=== PATIENT | male | born 1955 | race Caucasian/White ===

== ENCOUNTER → 2016-12-23 | Outpatient (CLI) | payer BC ==
--- NOTE | 2016-12-23 12:52 | XR ---
EXAMINATION TYPE: XR chest 2V DATE OF EXAM: 12/23/2016 COMPARISON: January 08, 2016 HISTORY: Cough, back pain TECHNIQUE: Frontal and lateral views of the chest are obtained. FINDINGS: There is no focal air space opacity, pleural effusion, or pneumothorax seen. The cardiac silhouette size is within normal limits. The osseous structures are intact. IMPRESSION: No acute cardiopulmonary process.
== END | disposition home or self-care (01) ==
LOC: RADXRMAIN 12:08
PROVIDERS: ATTEND Physician Assistant Medical
DX: R05 Cough (principal); R06.02 Shortness of breath
CPT/HCPCS: 71020

== ENCOUNTER → 2017-08-31 | Outpatient (CLI) | payer BC ==
--- NOTE | 2017-08-31 16:10 | US ---
EXAMINATION TYPE: US kidneys/renal and bladder DATE OF EXAM: 08/31/2017 COMPARISON: CT abdomen and pelvis June 16, 2014 CLINICAL HISTORY: R35.0 Frequency Micturition. Microscopic hematuria, frequent urination, patient sta lila PSA level was normal , h/o renal stones 12 years ago EXAM MEASUREMENTS: Right Kidney: 10.8 x 5.9 x 5.8cm Left Kidney: 11.8 x 4.6 x 5.8 cm Right Kidney: No hydronephrosis or masses seen Left Kidney: No hydronephrosis or masses seen Bladder: wnl Bilateral Jets seen: Yes There is no evidence for hydronephrosis at this point in time. No nephrolithiasis is seen. No itzel s are identified. The urinary bladder is anechoic. Bilateral ureteral jets are seen. IMPRESSION: Unremarkable study.
== END | disposition home or self-care (01) ==
LOC: RADUSWWP 14:37
PROVIDERS: ATTEND Family Medicine
DX: R35.0 Frequency of micturition (principal); R31.29 Other microscopic hematuria
CPT/HCPCS: 76770

== ENCOUNTER → 2018-02-23 | Outpatient (CLI) | payer BC ==
--- NOTE | 2018-02-23 17:55 | XR ---
EXAMINATION TYPE: XR foot complete LT DATE OF EXAM: 02/23/2018 COMPARISON: NONE HISTORY: Metatarsal pain TECHNIQUE: 3 views FINDINGS: I see no fracture nor dislocation. Metatarsals are intact. There are no erosions. Joint spa maurilio are fairly normal. IMPRESSION: Negative left foot exam.
== END | disposition home or self-care (01) ==
LOC: RADXRYALE 16:46
PROVIDERS: ATTEND Family Medicine
DX: M79.672 Pain in left foot (principal)

== ENCOUNTER → 2018-04-30 | Outpatient (CLI) | payer BC ==
--- NOTE | 2018-04-30 15:41 | MR ---
EXAMINATION TYPE: MR shoulder RT wo con DATE OF EXAM: 04/30/2018 COMPARISON: Outside radiographs of the right shoulder dated 04/06/2018 HISTORY: Pain in right shoulder TECHNIQUE: Multiplanar, multisequence imaging of the right shoulder is performed without contrast. FINDINGS: Rotator Cuff: There is a 3 x 4 mm partial-thickness articular surface tear of the distal fibers of th e supraspinatus superimposed upon moderate tendinopathy with bursal surface fraying of the supraspina tus fibers. Additional 2 mm intrasubstance tear is seen of the distal insertional fibers. Bursal surface and articular surface fraying of the infraspinatus is seen with moderate grade tendino annie demonstrated as increased intrinsic signal of the myotendinous junction and distal fibers. The teres minor is unremarkable also volume and signal. Small amount of joint fluid is seen deep to the t eres minor. There is mild subscapularis tendinosis with increased distal fiber intrinsic signal. Acromioclavicular Joint: There is moderate acromioclavicular arthropathy with capsular hypertrophy, s ubchondral cystic change and small marginal osteophytes. Glenohumeral Joint: No significant joint space narrowing. Labrum: There is suspicion for a superior labral anterior posterior tear that is nondisplaced superim posed upon global labral degeneration. Biceps Tendon: The long head of biceps is in normal location within bicipital groove. There is attenu ation of the intra-articular portion of the biceps tendon compatible with biceps tendinosis appearing severe. Bone marrow signal: No focal abnormal marrow signal is appreciated. IMPRESSION: 1. Low-grade 3 x 4 mm partial-thickness articular surface tear of the distal fibers of the supraspina tus. 2. Moderate supraspinatus and infraspinatus tendinopathy with bursal surface fraying of the supraspin atus and bursal surface as well as articular surface fraying of the infraspinatus. 3. Suspicion for a superior labral anterior to posterior tear with global labral degeneration. MR art hrogram could be performed for increased specificity. 4. Severe intra-articular portion biceps tendinosis. 5. Moderate acromioclavicular arthropathy.
== END | disposition home or self-care (01) ==
LOC: RADMRIMAIN 12:54
PROVIDERS: ATTEND Orthopaedic Surgery
DX: M19.011 Primary osteoarthritis, right shoulder (principal); M75.111 Incomplete rotator cuff tear or rupture of right shoulder, not specified as traumatic; M75.81 Other shoulder lesions, right shoulder

== ENCOUNTER → 2018-05-07 | Outpatient (CLI) | payer BC ==
[2018-05-07 14:08] LABS: Basophils # (A) 0.1 k/uL (0-0.2); Basophils % (A) 1 %; Eosinophils # (A) 0.2 k/uL (0-0.7); Eosinophils % (A) 2 %; HCT 46.3 % (39.0-53.0); HGB 15.4 gm/dL (13.0-17.5); Lymphocytes # (A) 3.2 k/uL (1.0-4.8); Lymphocytes % (A) 32 %; MCH 30.6 pg (25.0-35.0); MCHC 33.3 g/dL (31.0-37.0); MCV 92.1 fL (80.0-100.0); Mean Platelet Volume 6.8; Monocytes # (A) 0.7 k/uL (0-1.0); Monocytes % (A) 7 %; Neutrophils # (A) 5.6 k/uL (1.3-7.7); Neutrophils % (A) 56 %; Platelet Count 301 k/uL (150-450); RBC 5.03 m/uL (4.30-5.90); RDW 12.7 % (11.5-15.5); WBC 10.1 k/uL (3.8-10.6)
[2018-05-07 14:22] LABS: Potassium 4.5 mmol/L (3.5-5.1)
== END ==
LOC: LABPAT 13:23
PROVIDERS: ATTEND Orthopaedic Surgery
DX: Z01.818 Encounter for other preprocedural examination (principal); Z01.812 Encounter for preprocedural laboratory examination; M75.41 Impingement syndrome of right shoulder
CPT/HCPCS: 36415; 80051; 85025; 93005

== ENCOUNTER 2018-05-27 07:23 | Day surgery (SDC) | payer BC ==
[2018-05-24 14:35] VITALS: BMI 30.8
--- NOTE | 2018-05-26 14:17 | HP ---
HISTORY AND PHYSICAL DATE OF SURGERY: 05/27/2018 Pio Brown is a 62-year-old patient seen with progressive right shoulder pain. Treatment options were discussed with him. He elected to proceed with arthroscopy. Consent was obtained. PAST MEDICAL HISTORY: Iav-nwmdltf-qafqwhtfh diabetes, gastroesophageal reflux disease. PAST SURGICAL HISTORY: Cervical spinal surgery. DAILY MEDICATIONS: 1. Aspirin. 2. Prilosec. ALLERGIES: KEFLEX, TETRACYCLINE. SOCIAL HISTORY: Patient denies current tobacco use. PHYSICAL EVALUATION OF THE RIGHT SHOULDER: Flexion is 160 degrees, abduction 140 degrees, external rotation is 25 degrees with pain and weakness. There is tenderness along the anterolateral acromion rotator cuff insertion site. Impingement sign is positive at 90 degrees. Distal neurovascular exam is intact. RADIOGRAPHS OF RIGHT SHOULDER: Revealed a type 2 anterior acromion, evidence for acromioclavicular joint osteoarthritis and cystic changes of the tuberosity. A right shoulder MRI revealed rotator cuff tear, labral tear. Biceps tendinosis and acromioclavicular joint osteoarthritis. IMPRESSION: 1. Right shoulder impingement with rotator cuff tear. 2. Cel-clhfogk-pqrefctcg diabetes. 3. Gastroesophageal reflux disease. PLAN: Right shoulder arthroscopy with subacromial decompression, possible arthroscopic rotator cuff repair, possible biceps tenotomy, probable Libertad procedure and debridement. MMODL / IJN: [id number] /
[~2018-05-27 07:23] MED LIST: CLINDAMYCIN 900 MG in DEXTROSE 5% IN WATER 50 ML IVPB ONE; DEXAMETHASONE SOD PHOSPHATE 10 MG/ML 1 ML VIAL IV ONE; LACTATED RINGERS 1,000 ML IV SCH; LIDOCAINE 1% 20 ML VIAL (10MG/ML) FOR IV START INTRADERMA PRN; MIDAZOLAM 2 MG/2 ML VIAL IV PRN; ONDANSETRON 4 MG/2 ML VIAL IVP ONE
[2018-05-27 07:53] VITALS: TEMP 97.7
[2018-05-27 07:55] LABS: Glucose,Whole Blood 147 mg/dL (75-99)
[2018-05-27] MEDS ORDERED: fentaNYL (PF) 50 MCG/ML 2 ML AMP IVP ONE (08:08)
[2018-05-27] MEDS ORDERED: MIDAZOLAM 2 MG/2 ML VIAL IVP ONE (08:08)
--- NOTE | 2018-05-27 08:27 | P.ONQ ---
Anesthesiology Proc Note - PNB - Peripheral Nerve Block Performed Right Interscalene Single Time Out Performed: Yes Procedure Start Time: :07 Procedure Stop Time: :16 Indication: Requested by physician Specifically requested for management of pain by : Levon Whitehead Sedation Type: Sedate with meaningful contact maintained Preparation: Sterile Prep Position: Supine Needle Types: Other (see comment) (Pujunk) Needle Size: 50mm (2") Needle Gauge: 21 Technique: Ultrasound Injectate: 0.5% Ropivacaine (see comment for volume) (25 ml) Blood Aspirated: No Pain Paresthesia on Injection Noted: No Resistance on Injection: Normal Events: Uneventful and Well Tolerated
[2018-05-27] MEDS ORDERED: ROPIVACAINE 5 MG/ML 30 ML VIAL ONE (09:58)
[2018-05-27] MEDS ORDERED: SUCCINYLCHOLINE CHLORIDE 100 MG/5 ML SYR IV ONE (09:58)
[2018-05-27] MEDS ORDERED: MIDAZOLAM 2 MG/2 ML VIAL ONE (09:58)
[2018-05-27] MEDS ORDERED: fentaNYL (PF) 50 MCG/ML 2 ML AMP ONE (09:58)
[2018-05-27] MEDS ORDERED: PROPOFOL 10 MG/ML 20 ML VIAL IV ONE (09:58)
[2018-05-27] MEDS ORDERED: LACTATED RINGERS 1,000 ML IV ONE (11:32)
[2018-05-27] MEDS: fentaNYL (PF) 50 MCG/ML 2 ML AMP IV PRN ×2 (11:55→12:15)
--- NOTE | 2018-05-27 11:55 | P.OP ---
Date of Procedure: 05/27/18 Preoperative Diagnosis: Right shoulder impingement Postoperative Diagnosis: 1. Right shoulder rotator cuff tear 2. Right shoulder impingement 3. Right shoulder acromioclavicular joint osteoarthritis 4. Right shoulder partial long head biceps tendon tear 5. Right shoulder labral tear Procedure(s) Performed: 1. Right shoulder arthroscopic rotator cuff repair 2. Right shoulder arthroscopic subacromial decompression 3. Right shoulder arthroscopic Libertad procedure 4. Right shoulder arthroscopic biceps tenotomy 5. Right shoulder arthroscopic debridement labral tear Implants: 14.75 Arthrex swivel lock anchor Anesthesia: GETA, regional (Interscalene block) Surgeon: Levon Whitehead Ballistics Teacher #1: Micheal Rivers Estimated Blood Loss (ml): 10 Pathology: none sent Condition: stable Disposition: PACU Indications for Procedure: 62-year-old patient seen with progressive right shoulder pain. After treatment options were discussed, he elected to proceed with arthroscopy Operative Findings: see description of procedure Description of Procedure: Patient underwent an interscalene block by department of anesthesia for postoperative pain management. The patient was then taken to the operative suite. The patient underwent a general anesthetic by the department of anesthesia. The patient was placed into a lateral position and secured. There was appropriate padding of the bony prominence. Right shoulder was then prepped and draped in normal sterile orthopedic fashion. We placed the extremity in 10 pounds of longitudinal traction. A posterior incision was now made for a posterior working portal site. The trocar and cannula were inserted into the glenohumeral joint. Arthroscopy was initiated. Spinal needle was now inserted anteriorly, to ascertain the anterior working portal site. An incision was now made in that area, a trocar was inserted followed by a probe. There was superficial tearing of the superior and anterior labrum present. Partial tearing of the long head biceps tendon. I could see a full-thickness rotator cuff tear from the glenohumeral side. There was mild grade 1 chondromalacia of the glenohumeral joint. I debrided the labral tear down to stable tissue. I performed an arthroscopic biceps tenotomy area the residual labrum was stable. Utilizing the posterior working portal site, the trocar and cannula were inserted into the subacromial space. Arthroscopy initiated. I made an incision 2 fingerbreadths lateral to the acromion. I introduced my trocar followed by my ArthroCare ablator. I now began ablating thick subacromial bursal tissue, which exposed the undersurface of the anterior acromion. There was diminished subacromial space. There was a very prominent anterior acromion. A motorized bur was introduced and a subacromial decompression was performed. I also excised some osteophytes off the inferior aspect of the distal clavicle. The AC joint was visualized and noted to be fairly arthritic. The motorized bur was introduced in the anterior portal site and a Libertad procedure was performed without difficulty, decompressing the AC joint nicely. I turned my attention to the rotator cuff. There was a 1 cm rotator cuff tear. I debrided the margins getting down to stable tendon tissue. The defect now measured 1.5 cm. I introduced my motorized bur and abraded the footprint area, getting some petechial bleeding. I passed 2 everted mattress sutures through good bites of rotator cuff tendon. I punched a hole in the footprint with the assistance of Elia LAGUNAS. The suture limbs were passed through a 4.75 Arthrex anchor. The anchor now was introduced our pre-punch hole. I held the anchor guide in position with one hand holding the camera with the other hand while Elia LAGUNAS tensioned the suture and screwed in the anchor. All residual suture limbs were now clipped. We had good compression of the tendon along the entire footprint. I injected 1 mL Renue intra-articular. Instruments now removed from the portal sites. All portal sites were approximated with nylon suture. Sterile dressings were applied followed by a shoulder immobilizer. Micheal LAGUNAS assisted in this complex case. The patient was awakened, transferred to a bed, and taken to recovery in stable condition.
[2018-05-27 12:05] VITALS: RESP 16
[2018-05-27 12:10] LABS: Glucose,Whole Blood 158 mg/dL (75-99)
[2018-05-27] MEDS ORDERED: HYDROcodone/APAP 7.5-325MG 1 EACH TAB PO ONE (12:57)
[2018-05-27 13:00] VITALS: BP 134/84; PULSE 63
== END 2018-05-27 13:47 | disposition home or self-care (01) ==
LOC: OR 07:23
PROVIDERS: ATTEND Orthopaedic Surgery
DX: M75.101 Unspecified rotator cuff tear or rupture of right shoulder, not specified as traumatic (principal); M75.41 Impingement syndrome of right shoulder; M19.011 Primary osteoarthritis, right shoulder; S46.111A Strain of muscle, fascia and tendon of long head of biceps, right arm, initial encounter; S43.431A Superior glenoid labrum lesion of right shoulder, initial encounter; X58.XXXA Exposure to other specified factors, initial encounter; K21.9 Gastro-esophageal reflux disease without esophagitis; E11.9 Type 2 diabetes mellitus without complications; Z79.82 Long term (current) use of aspirin; Z79.899 Other long term (current) drug therapy; Z88.1 Allergy status to other antibiotic agents; E78.5 Hyperlipidemia, unspecified; G47.33 Obstructive sleep apnea (adult) (pediatric); J45.909 Unspecified asthma, uncomplicated; Z91.010 Allergy to peanuts; Z91.018 Allergy to other foods
CPT/HCPCS: 64415; 29826; 29827; 29824; C1713 ×2; C1765; J2250; J1100; J2405; J3010; J2795; J0330; J2704

== ENCOUNTER → 2018-12-10 | Outpatient (CLI) | payer BC | END | disposition home or self-care (01) | LOC: LABWHC1 10:14 | PROVIDERS: ATTEND Internal Medicine Critical Care Medicine | DX: J45.901 Unspecified asthma with (acute) exacerbation (principal) | CPT/HCPCS: 36415; 82785 ==

== ENCOUNTER → 2019-06-28 | Outpatient (CLI) | payer BC ==
--- NOTE | 2019-06-28 16:06 | XR ---
EXAMINATION TYPE: XR lumbar spine 2 or 3V DATE OF EXAM: 06/28/2019 CLINICAL HISTORY: Chronic increasing low back pain. TECHNIQUE: Frontal and lateral images of the lumbar spine are obtained. COMPARISON: CT abdomen and pelvis 2013. FINDINGS: There are 5 lumbar type vertebral bodies redemonstrated. The lumbar spine shows satisfact ory alignment without evidence of acute fracture or dislocation. Vertebral body heights and disk spac e heights are within normal limits. Mild anterior spurring lower lumbar levels is seen. Cholecystecto my clips redemonstrated in overlying soft tissue. IMPRESSION: As above.
== END | disposition home or self-care (01) ==
LOC: RADXRYALE 15:38
PROVIDERS: ATTEND Family Medicine
DX: M46.06 Spinal enthesopathy, lumbar region (principal); Z90.49 Acquired absence of other specified parts of digestive tract; Z96.89 Presence of other specified functional implants
CPT/HCPCS: 72100

== ENCOUNTER 2019-09-16 07:38 | Day surgery (SDC) | payer BC ==
[2019-09-15 08:53] VITALS: BMI 31.4
[~2019-09-16 07:38] MED LIST changes: -CLINDAMYCIN 900 MG in DEXTROSE 5% IN WATER 50 ML IVPB ONE; -DEXAMETHASONE SOD PHOSPHATE 10 MG/ML 1 ML VIAL IV ONE; +LIDOCAINE 1% (10MG/ML) FOR IV START INTRADERMA PRN; -LIDOCAINE 1% 20 ML VIAL (10MG/ML) FOR IV START INTRADERMA PRN; -MIDAZOLAM 2 MG/2 ML VIAL IV PRN; -ONDANSETRON 4 MG/2 ML VIAL IVP ONE
[2019-09-16 08:09] VITALS: RESP 16; TEMP 98.3
[2019-09-16 08:10] LABS: Glucose,Whole Blood 122 mg/dL (75-99)
[2019-09-16] MEDS ORDERED: PROPOFOL 10 MG/ML 20 ML VIAL IV ONE (08:21)
[2019-09-16] MEDS ORDERED: LIDOCAINE 1% INJ 10MG/ML (20 ML MDV) ONE (08:21)
--- NOTE | 2019-09-16 08:42 | P.PCN ---
Date of Procedure: 09/16/19 Procedure(s) Performed: BRIEF HISTORY: Patient is a 63-year-old pleasant male scheduled for an elective colonoscopy as a part of screening for colon rectal neoplasia. He has family history of colon cancer diagnosed in her mother at age 48. PROCEDURE PERFORMED: Colonoscopy with snare polypectomy. PREOPERATIVE DIAGNOSIS: Screening for colon cancer/family history of colon cancer. IV sedation per Anesthesia. PROCEDURE: After informed consent was obtained, the patient, was brought into the endoscopy unit. IV sedation was administered by Anesthesia under continuous monitoring. Digital rectal examination was normal. Initially the Olympus CF-160 flexible video colonoscope was then inserted in the rectum, gradually advanced into the cecum without any difficulty. Careful examination was performed as the scope was gradually being withdrawn. Ileocecal valve and the appendiceal orifice were visualized and appeared normal. Prep was excellent. Mucosa of the cecum appeared normal. In the ascending colon there was a 5 mm sessile polyp removed by snare polypectomy. Rest of the ascending colon, transverse colon, descending colon, sigmoid colon, and rectum appeared normal. Retroflexion was performed in the rectum and no lesions were seen. The patient tolerated the procedure well. IMPRESSION: 5 mm ascending colon polyp status post snare polypectomy Rest of the colon appeared normal RECOMMENDATIONS: Findings of this examination were discussed with the patient as well as his family. He was advised to follow with the biopsy results. He was advised to have a repeat screening colonoscopy in 5 years from now because of persistent history of colon polyps and family history of colon cancer
[2019-09-16 08:55] VITALS: BP 116/74; PULSE 57
== END 2019-09-16 09:02 | disposition home or self-care (01) ==
LOC: ORWHC2ENDO 07:38
PROVIDERS: ATTEND Internal Medicine Gastroenterology
DX: Z12.11 Encounter for screening for malignant neoplasm of colon (principal); K63.5 Polyp of colon; Z86.010 Personal history of colon polyps; Z80.0 Family history of malignant neoplasm of digestive organs; E78.5 Hyperlipidemia, unspecified; E11.9 Type 2 diabetes mellitus without complications; K21.9 Gastro-esophageal reflux disease without esophagitis; Z79.899 Other long term (current) drug therapy; Z88.1 Allergy status to other antibiotic agents; Z88.0 Allergy status to penicillin
CPT/HCPCS: 88305; 45385; J2001; J2704

== ENCOUNTER → 2020-05-25 | Outpatient (CLI) | payer BC ==
--- NOTE | 2020-05-26 02:52 | MR ---
EXAMINATION TYPE: MR shoulder RT wo con DATE OF EXAM: 05/25/2020 COMPARISON: 04/30/2018 HISTORY: R shoulder pain Multiplanar multiecho imaging of the right shoulder was performed without contrast. Subscapularis tendon is intact. Biceps tendon is intact. The glenoid robyn appear intact. There are small degenerative cysts in the humeral head near the greater tuberosity of the humerus. Th ere is linear area of mixed signal in the greater tuberosity that could relate to surgery. There is f ull-thickness defect through the supraspinatus tendon seen on T2 coronal image 16. There is no retrac tion. There is some clavicle deformity with impingement on the supraspinatus muscle. I see no fractu re. There is no evidence of focal bone destruction. IMPRESSION: There is evidence of full-thickness tear of the supraspinatus tendon near the greater tuberosity of t he humerus without retraction. This is a change compared to old exam. There is linear defect consiste nt with surgery at the greater tuberosity. There is mild impingement on the supraspinatus muscle from the clavicle. There is apparent surgery at the AC joint with removal of the osteophyte formation com pared to old exam. There is no impingement at the AC joint.
== END | disposition home or self-care (01) ==
LOC: RADMRIMAIN 12:58
PROVIDERS: ATTEND Orthopaedic Surgery
DX: M75.121 Complete rotator cuff tear or rupture of right shoulder, not specified as traumatic (principal); M75.41 Impingement syndrome of right shoulder; Z98.890 Other specified postprocedural states

== ENCOUNTER → 2020-06-25 | Outpatient (CLI) | payer BC ==
--- NOTE | 2020-06-25 12:43 | XR ---
EXAMINATION TYPE: XR knee complete LT DATE OF EXAM: 06/25/2020 CLINICAL HISTORY: Generalized knee pain. TECHNIQUE: Three views of the left knee are obtained. COMPARISON: None. FINDINGS: There is no acute fracture/dislocation evident in left knee. Mild tricompartment changes without spurring. Spurring from the anterior superior patella is noted. The overlying soft tissue a ppears unremarkable. IMPRESSION: As above.
== END | disposition home or self-care (01) ==
LOC: RADXRYALE 11:59
PROVIDERS: ATTEND Family Medicine
DX: M17.12 Unilateral primary osteoarthritis, left knee (principal)

== ENCOUNTER → 2020-08-25 | Outpatient (CLI) | payer BC ==
--- NOTE | 2020-08-25 14:30 | MR ---
EXAMINATION TYPE: MR knee LT wo con DATE OF EXAM: 08/25/2020 COMPARISON: Radiograph 08/07/2020. HISTORY: Left knee pain for a couple months. TECHNIQUE: Multiplanar, multisequence imaging of the left knee is performed without IV contrast. FINDINGS: MEDIAL MENISCUS: Mildly complex tear of the posterior horn with vertical and oblique components. LATERAL MENISCUS: Anterior and posterior horns are intact without tear. CRUCIATE LIGAMENTS: Mild heterogeneity and irregularity of the anterior cruciate ligament without ful l-thickness tear. The posterior cruciate ligament is grossly intact. COLLATERAL LIGAMENTS: Mild thickening of the medial collateral ligament with surrounding edema withou t disruption, compatible with grade 1 sprain. Lateral collateral ligament complex is intact and unrem arkable. EXTENSOR MECHANISM: Visualized quadriceps and patellar tendons are intact. EFFUSION: Small joint effusion. POPLITEAL CYST: Small popliteal/le cyst. TRICOMPARTMENT SPACES/CARTILAGE: Mild to moderate thinning of the medial compartment articular cartil age with overlying small to moderate partial thickness chondral defects. Also mild thinning of the pa tellofemoral compartment. Otherwise no significant chondral defect of the patellofemoral or lateral c ompartments BONE MARROW SIGNAL: Degenerative mild subchondral cystic changes. Otherwise no focal abnormal marrow signal is appreciated. OTHER: 1.7 cm cystic structure compatible ganglion cyst along the posteromedial joint line and invol ving the semimembranosus bursa. IMPRESSION: Medial meniscus posterior horn tear. Mild to moderate osteoarthritis of the medial compartment. Small knee joint effusion and Le's cyst. Also 1.7 cm ganglion cyst along the posteromedial joint l ine and with probable semimembranosus bursitis. Grade 1 MCL sprain.
== END | disposition home or self-care (01) ==
LOC: RADMRIMAIN 12:29
PROVIDERS: ATTEND Orthopaedic Surgery
DX: S83.412A Sprain of medial collateral ligament of left knee, initial encounter (principal); S83.242A Other tear of medial meniscus, current injury, left knee, initial encounter; M17.12 Unilateral primary osteoarthritis, left knee

== ENCOUNTER 2020-09-20 08:14 | Day surgery (SDC) | payer BC ==
[2020-09-14 13:53] VITALS: BMI 32.3
--- NOTE | 2020-09-19 18:00 | HP ---
HISTORY AND PHYSICAL DATE OF SURGERY: 09/20/2020 Pio Brown is a 64-year-old gentleman seen with progressive left knee pain. We discussed options for treatment. He elected to proceed with arthroscopy. Consent was obtained. PAST MEDICAL HISTORY: Gastroesophageal reflux disease, [id number]-zeuiuthij diabetes. PAST SURGICAL HISTORY: Cervical spine surgery. DAILY MEDICATIONS: Prilosec, aspirin. ALLERGIES: KEFLEX and TETRACYCLINE. SOCIAL HISTORY: He denies current tobacco use. PHYSICAL EVALUATION OF THE LEFT KNEE: Range of motion is zero to 130. Mild effusion. Tenderness, medial joint line. Positive medial Eulalio's. Ligaments stable. Hip rotation without pain. Distal neurovascular exam is intact. RADIOGRAPHS: Left knee radiographs revealed mild osteoarthritis. MRI left knee revealed medial meniscal tear and joint effusion. IMPRESSION: Internal derangement of left knee with medial meniscal tear. PLAN: Left knee arthroscopy with partial meniscectomy and debridement. MMODL / IJN: [id number] /
[~2020-09-20 08:14] MED LIST changes: +DEXAMETHASONE SOD PHOSPHATE 4 MG/ML 1 ML VIAL IV ONE; +ONDANSETRON 4 MG/2 ML VIAL IVP ONE
[2020-09-20] MEDS ORDERED: ONDANSETRON 4 MG/2 ML VIAL ONE (08:54)
[2020-09-20 09:13] LABS: Glucose,Whole Blood 123 mg/dL (75-99)
[2020-09-20] MEDS ORDERED: BUPIVACAINE (PF) 0.25% 30 ML VIAL SQ ONE ×2 (09:22→09:57)
[2020-09-20] MEDS ORDERED: fentaNYL (PF) 50 MCG/ML 2 ML AMP ONE (09:26)
[2020-09-20] MEDS ORDERED: LIDOCAINE 1% INJ 10MG/ML (20 ML MDV) ONE (09:26)
[2020-09-20] MEDS ORDERED: MIDAZOLAM 2 MG/2 ML VIAL ONE (09:26)
[2020-09-20] MEDS ORDERED: PROPOFOL 10 MG/ML 20 ML VIAL IV ONE (09:26)
--- NOTE | 2020-09-20 10:10 | P.OP ---
Date of Procedure: 09/20/20 Preoperative Diagnosis: Internal derangement left knee Postoperative Diagnosis: 1. Tear medial meniscus left knee 2. Grade 3 chondromalacia patella left knee 3. Reactive synovitis medial, lateral and suprapatellar compartments left knee Procedure(s) Performed: 1. Arthroscopic partial medial meniscectomy left knee 2. Arthroscopic chondroplasty patella left knee 3. Arthroscopic partial synovectomy medial, lateral and suprapatellar compartments left knee Anesthesia: LEANNA, local Surgeon: Levon Whitehead Estimated Blood Loss (ml): 7 Pathology: none sent Condition: stable Disposition: PACU Indications for Procedure: 64-year-old patient seen with progressive left knee pain. After treatment options were discussed, he elected to proceed with arthroscopy. Operative Findings: See description of procedure Description of Procedure: Patient was taken to the operative suite. Patient underwent a general anesthetic by the department of anesthesia. Patient was given preoperative antibiotics. The left lower extremity was placed in a well-padded arthroscopic leg montes. The left leg was prepped and draped in the normal sterile orthopedic fashion. A lateral parapatellar and suprapatellar incision was made. Trochars were inserted. Arthroscopy was initiated. Suprapatellar pouch revealed diffuse thick reactive synovitis. The patellofemoral joint appeared to cure congruently. There grade 3 chondromalacia with some small osteochondral tears along the periphery. The scope was guided into the medial gutter. No loose bodies or plica were identified. The scope was then guided into the medial compartment. A medial parapatellar incision was made. Trocar inserted followed by probe. There was a complex tear posterior horn medial meniscus. There were grade 1 chondromalacia changes of the medial femoral condyle. There was thick reactive synovitis anteriorly. I performed a partial medial meniscectomy. I performed a partial synovectomy. The residual meniscus was found to be stable. There was good decompression of the synovitis. Scope and probe were then guided into the intercondylar notch. Cruciates were identified, probed and found to be stable. The scope and probe were then guided into la teral compartment. The lateral meniscus was probed and found to be stable. There was thick reactive synovitis anteriorly. There was no evidence for chondromalacia. I introduced a motorized shaver into lateral compartment. I performed a partial synovectomy decompressing the thick reactive synovitis. The shaver was removed. There was good decompression of the synovitis. The scope was in guided back into the suprapatellar compartment. I introduced a motorized shaver into the super patellar compartment. I performed a chondroplasty of the patella. I performed a partial synovectomy. Shaver was removed. There was good decompression of the synovitis. Instruments were now removed from the joint. The joint was infiltrated with .25% Marcaine. Steri-Strips were applied to the portal sites. Sterile dressings were applied. The patient was placed into a DAVID hose. No tourniquet was utilized. The patient was awakened, transferred to a bed and taken to recovery stable satisfactory condition.
[2020-09-20 10:14] VITALS: TEMP 98
[2020-09-20 10:23] LABS: Glucose,Whole Blood 109 mg/dL (75-99)
[2020-09-20] MEDS ORDERED: HYDROmorphone 0.5 MG/0.5 ML SYRINGE IVP ONE (10:41)
[2020-09-20 11:34] VITALS: RESP 20
[2020-09-20 11:35] VITALS: BP 121/80
[2020-09-20 12:02] VITALS: PULSE 67
== END 2020-09-20 12:40 | disposition home or self-care (01) ==
LOC: OR 08:14
PROVIDERS: ATTEND Orthopaedic Surgery
DX: S83.232A Complex tear of medial meniscus, current injury, left knee, initial encounter (principal); M22.42 Chondromalacia patellae, left knee; M17.12 Unilateral primary osteoarthritis, left knee; M65.862 Other synovitis and tenosynovitis, left lower leg; K21.9 Gastro-esophageal reflux disease without esophagitis; E11.9 Type 2 diabetes mellitus without complications; G47.33 Obstructive sleep apnea (adult) (pediatric); E78.5 Hyperlipidemia, unspecified; Z79.899 Other long term (current) drug therapy; Z88.8 Allergy status to other drugs, medicaments and biological substances; Z88.1 Allergy status to other antibiotic agents; Z91.018 Allergy to other foods; X58.XXXA Exposure to other specified factors, initial encounter
CPT/HCPCS: 29881; 29876; J2250; J1100; J0690; J2405; J2001; J3010; J2704; J1170

== ENCOUNTER → 2021-09-16 | Outpatient (CLI) | payer BC ==
--- NOTE | 2021-09-16 13:31 | MR ---
EXAMINATION TYPE: MR shoulder LT wo con DATE OF EXAM: 09/16/2021 COMPARISON: Plain film 08/30/2021 HISTORY: Left shoulder pain TECHNIQUE: Multiplanar, multisequence imaging of the left shoulder is performed without contrast. FINDINGS: Rotator Cuff: There is abnormal increased signal within the rotator cuff, abnormal thickening present . Partial thickness tear is suspected, sagittal image #5, coronal image #15. Acromioclavicular Joint: There is hypertrophic change present causing mass effect on the musculotendi nous junction of supraspinatus, suspect a distal acromial spur is present Glenohumeral Joint: Maintained Labrum: The labrum appears grossly intact given limitation of non-arthrogram study. Biceps Tendon: The long head of biceps is in normal location within bicipital groove, fluid present a long the long head of biceps tendon. Bone marrow signal: Pseudocysts are present within the humeral head Other: No additional significant abnormality is appreciated. IMPRESSION: Correlate for impingement, there is tendinopathy, partial tear the rotator cuff
== END | disposition home or self-care (01) ==
LOC: RADMRIMAIN 11:06
PROVIDERS: ATTEND Orthopaedic Surgery
DX: M67.814 Other specified disorders of tendon, left shoulder (principal); M75.112 Incomplete rotator cuff tear or rupture of left shoulder, not specified as traumatic

== ENCOUNTER 2021-11-06 05:43 | Day surgery (SDC) | payer BC ==
[2021-11-04 15:25] VITALS: BMI 32.3
--- NOTE | 2021-11-05 19:35 | HP ---
HISTORY AND PHYSICAL DATE OF SURGERY: 11/06/2021 Pio Brown is a 66-year-old gentleman seen with progressive left shoulder pain. We discussed options for treatment. He elected to proceed with left shoulder arthroscopy. Consent was obtained. PAST MEDICAL HISTORY: Sju-pgoeigv-scucfdtzk diabetes, gastroesophageal reflux disease. PAST SURGICAL HISTORY: Spine surgery. DAILY MEDICATIONS: Prilosec, Actos, Aleve. ALLERGIES: KEFLEX, TETRACYCLINE. SOCIAL HISTORY: The patient denies current tobacco use. PHYSICAL EVALUATION OF THE LEFT SHOULDER: Flexion is 140 degrees. Abduction is 110 degrees. External rotation is 40 degrees with some pain and weakness. There is tenderness along the anterolateral acromion and rotator cuff insertion. Impingement is positive at 90 degrees. Cross-body adduction sign is positive. Drop-arm sign is positive. Distal neurovascular exam is intact. Radiographs of the left shoulder revealed a type 3 acromion, evidence for acromioclavicular joint osteoarthritis which is severe as well as cystic changes of the tuberosity. MRI left shoulder revealed a partial rotator cuff tendon tear, acromioclavicular joint osteoarthritis and acromial spur. IMPRESSION: 1. Left shoulder impingement with partial rotator cuff tear. 2. Left shoulder acromioclavicular joint osteoarthritis. 3. Dte-evsgzro-nusjpwcfq diabetes. 4. Gastroesophageal reflux disease. PLAN: Left shoulder arthroscopy with subacromial decompression, possible arthroscopic rotator cuff repair, Libertad procedure and debridement. MMODL / IJN: [id number] /
[2021-11-06] MEDS ORDERED: MIDAZOLAM 2 MG/2 ML VIAL IV ONE (06:43)
[2021-11-06 06:52] LABS: Glucose,Whole Blood 139 mg/dL (75-99)
[2021-11-06] MEDS ORDERED: HYDROmorphone 0.5 MG/0.5 ML SYRINGE IVP PRN (07:00)
[2021-11-06] MEDS ORDERED: LIDOCAINE 2% INJ 20 MG/ML (2 ML VIAL) ONE (07:22)
[2021-11-06] MEDS ORDERED: ROPIVACAINE 5 MG/ML 30 ML VIAL ONE (07:22)
[2021-11-06] MEDS ORDERED: DEXAMETHASONE SOD PHOSPHATE 4 MG/ML 1 ML VIAL ONE (07:22)
[2021-11-06] MEDS ORDERED: PROPOFOL 10 MG/ML 20 ML VIAL IV ONE (07:22)
[2021-11-06] MEDS ORDERED: SUCCINYLCHOLINE CHLORIDE 100 MG/5 ML SYR IV ONE (07:22)
[2021-11-06] MEDS ORDERED: MIDAZOLAM 2 MG/2 ML VIAL ONE (07:22)
[2021-11-06] MEDS ORDERED: PHENYLEPHRINE-0.9% NACL SYG 1,000 MCG/10 ML SYRINGE ONE (07:22)
[2021-11-06] MEDS ORDERED: GLYCOPYRROLATE 0.2 MG/ML 2 ML VIAL ONE (07:22)
[2021-11-06] MEDS ORDERED: fentaNYL (PF) 50 MCG/ML 2 ML AMP ONE (07:22)
--- NOTE | 2021-11-06 07:32 | P.ANPRN ---
Procedure Note - Anesthesia - Nerve Block Performed Left Interscalene Single Time Out Performed: Yes Date of Procedure: 11/06/21 Procedure Start Time: 06:43 Procedure Stop Time: 06:52 Location of Patient: PreOp Indication: Acute Post-Operative Pain, Requested by Surgeon Sedation Type: Sedate with meaningful contact maintained Preparation: Sterile Prep, Sterile Dressing Position: Sitting Catheter: None Needle Types: Facet Needle Gauge: 21 Ultrasound used to visualize needle placement: Yes Ultrasound used to observe medication spread: Yes Injectate: 0.5% Ropivacaine (see comment for volume) (30 ml + decadron 4 mg) Blood Aspirated: No Pain Paresthesia on Injection Noted: No Resistance on Injection: Normal Image Stored and Saved: Yes Events: Uneventful and Well Tolerated
[2021-11-06] MEDS ORDERED: LACTATED RINGERS 1,000 ML IV ONE (08:32)
[2021-11-06 08:58] VITALS: TEMP 97
--- NOTE | 2021-11-06 08:58 | P.OP ---
Date of Procedure: 11/06/21 Preoperative Diagnosis: Left shoulder impingement Postoperative Diagnosis: 1. Left shoulder rotator cuff tear 2. Left shoulder impingement 3. Left shoulder acromioclavicular joint osteoarthritis Procedure(s) Performed: 1. Left shoulder arthroscopic rotator cuff repair 2. Left shoulder arthroscopic subacromial decompression 3. Left shoulder arthroscopic Libertad procedure Implants: 14.75 Arthrex swivel lock anchor Anesthesia: GETA, regional (Interscalene block) Surgeon: Levon Whitehead Marketing Content Specialist #1: Micheal Rivers Estimated Blood Loss (ml): 11 Pathology: none sent Condition: stable Disposition: PACU Indications for Procedure: 66-year-old patient seen with progressive left shoulder pain. After treatment options were discussed, he elected to proceed with arthroscopy. Operative Findings: See description of procedure Description of Procedure: Patient underwent an interscalene block by department of anesthesia. The patient was then taken to the operative suite. The patient underwent a general anesthetic by the department of anesthesia. The patient was placed into a lateral position and secured. There was appropriate padding of the bony prominence. Left shoulder was then prepped and draped in normal sterile orthopedic fashion. We placed the extremity in 10 pounds of longitudinal traction. A posterior incision was now made for a posterior working portal site. The trocar and cannula were inserted into the glenohumeral joint. Arthroscopy was initiated. Spinal needle was now inserted anteriorly, to ascertain the anterior working portal site. An incision was now made in that area, a trocar was inserted followed by a probe. There was some superficial tearing of the superior/anterior labrum. The biceps appeared intact and stable. There were grade 1 chondromalacia changes about the glenohumeral joint with no tears. I debrided out the superficial labral tearing down to stable labral tissue. The residual labrum was probed and was found to be stable. Instruments now removed from the glenohumeral joint. Utilizing the posterior working portal site, the trocar and cannula were inserted into the subacromial space. Arthroscopy initiated. I made an incision 2 fingerbreadths lateral to the acromion. I introduced my trocar followed by my ArthroCare ablator. I now began ablating thick subacromial bursal tissue, which exposed the undersurface of the anterior acromion. There was diminished subacromial space. There was a very prominent anterior acromion. A motorized bur was introduced and a subacromial decompression was performed. I also excised some osteophytes off the inferior aspect of the distal clavicle. The AC joint was visualized and noted to be fairly arthritic. The motorized bur was introduced in the anterior portal site and a Libertad procedure was performed without difficulty, decompressing the AC joint nicely. I turned my attention to the rotator cuff. There was an area along the distal supraspinatus with signi ficant partial tearing. Upon probing the area there was a full-thickness perforation. I debrided the margins getting down to stable tendon tissue. I abraded the footprint with a motorized bur. With the assistance of Elia LAGUNAS past 3 everted mattress sutures through good bites of rotator cuff tendon. I now punched a hole in the footprint area for insertion of an anchor. All 6 limbs of suture were passed through the eyelet of a 4.75 Arthrex swivel lock anchor. I placed the eyelet into the pre-punched hole. I held that in position while Elia LAGUNAS tensioned all 6 suture limbs and deployed the anchor with good fixation noted. All residual suture limbs were now clipped. We had good compression of the tendon along the entire footprint. Instruments now removed from the portal sites. All portal sites were approximated with nylon suture. Sterile dressings were applied followed by a shoulder sling. Micheal LAGUNAS assisted in this case. The patient was awakened, transferred to a bed, and taken to recovery in stable condition.
[2021-11-06 09:03] VITALS: RESP 16
[2021-11-06 10:04] VITALS: BP 123/82; PULSE 64
== END 2021-11-06 10:33 | disposition home or self-care (01) ==
LOC: OR 05:43
PROVIDERS: ATTEND Orthopaedic Surgery
DX: M75.42 Impingement syndrome of left shoulder (principal); M19.012 Primary osteoarthritis, left shoulder; M75.122 Complete rotator cuff tear or rupture of left shoulder, not specified as traumatic; M94.212 Chondromalacia, left shoulder; E11.9 Type 2 diabetes mellitus without complications; K21.9 Gastro-esophageal reflux disease without esophagitis; G47.33 Obstructive sleep apnea (adult) (pediatric); J45.30 Mild persistent asthma, uncomplicated; E78.5 Hyperlipidemia, unspecified; N40.1 Benign prostatic hyperplasia with lower urinary tract symptoms; N13.8 Other obstructive and reflux uropathy; E78.2 Mixed hyperlipidemia; N52.9 Male erectile dysfunction, unspecified; Z87.891 Personal history of nicotine dependence; Z98.890 Other specified postprocedural states; Z79.899 Other long term (current) drug therapy; Z79.84 Long term (current) use of oral hypoglycemic drugs; Z88.1 Allergy status to other antibiotic agents; Z88.8 Allergy status to other drugs, medicaments and biological substances; Z91.010 Allergy to peanuts; Z91.013 Allergy to seafood
CPT/HCPCS: 29824; 29827; 29826; 64415; 76942; C1713 ×2; J2250; J1100; J0690; J2405; J3010; J2795; J2370; J0330; J2704; J2001

== ENCOUNTER → 2022-11-03 | Outpatient (CLI) | payer BC, MEDICARE ==
--- NOTE | 2022-11-03 14:41 | XR ---
EXAMINATION TYPE: XR abdomen 2V DATE OF EXAM: 11/03/2022 11:50 AM INDICATION: Patient age:Male; 67 years old; Reason for study: [id number] LOWER ABD PAIN. COMPARISON: 09/26/2014 TECHNIQUE: Two views of the abdomen were obtained. FINDINGS: The bowel gas pattern is nonspecific without dilated loops of small or large bowel. There i s no evidence for organomegaly or pneumoperitoneum. The osseous structures are intact. No abnormal calcifications are present. Fecal material and gas are demonstrated throughout the colon and rectum. Cholecystomy clips. IMPRESSION: Nonspecific bowel gas pattern without radiographic evidence for acute process.
== END | disposition home or self-care (01) ==
LOC: RADXRYALE 11:26
PROVIDERS: ATTEND Physician Assistant Medical
DX: R10.30 Lower abdominal pain, unspecified (principal)
CPT/HCPCS: 74019

== ENCOUNTER → 2023-02-18 | Outpatient (CLI) | payer MEDICARE ==
--- NOTE | 2023-02-18 13:15 | US ---
EXAMINATION TYPE: US Aorta Screening DATE OF EXAM: 02/18/2023 COMPARISON: NONE CLINICAL INDICATION: Male, 67 years old with history of Z13.6 SCREENING FOR CARDIOVASCULAR DISORDERS; TECHNIQUE: Multiple sonographic images of the abdominal aorta are obtained. FINDINGS: EXAM MEASUREMENTS: Abdominal Aorta: Proximal: 2.7 x 2.1cm Mid: 1.8 x 1.6cm Distal: 1.8 x 1.8cm Bifurcation: wnl HEAD CAGER NOTES: no AAA seen IMPRESSION: Borderline ectatic proximal abdominal aorta 2.7 cm. No sonographic evidence for AAA.
== END | disposition home or self-care (01) ==
LOC: RADUSWWP 08:19
PROVIDERS: ATTEND Family Medicine
DX: Z13.6 Encounter for screening for cardiovascular disorders (principal)
CPT/HCPCS: 76706